=== PATIENT | male | born 1995 | race American Indian/Alaskan Native ===

== ENCOUNTER 2018-02-04 19:11 | Emergency (ER) | payer SELFPAY ==
[2018-02-04 20:02] VITALS: BP 140/83
[2018-02-04] MEDS ORDERED: MOTRIN PO ONE (20:03)
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
--- NOTE | 2018-02-04 22:15 | XRay Report ---
FINAL REPORT EXAM: XR HAND 2V RT HISTORY: right hand swelling and pain COMPARISON: None available. FINDINGS: Two views of right hand obtained. Bony structures are intact. Joint spaces are preserved. No acute fracture dislocation. IMPRESSION: No acute bony abnormality.
== END 2018-02-04 21:32 | disposition home or self-care (01) ==
LOC: ED 19:11
DX: S62.316A Displaced fracture of base of fifth metacarpal bone, right hand, initial encounter for closed fracture (principal); F17.200 Nicotine dependence, unspecified, uncomplicated; F12.90 Cannabis use, unspecified, uncomplicated; W22.01XA Walked into wall, initial encounter; Y93.89 Activity, other specified; Y92.89 Other specified places as the place of occurrence of the external cause; Y99.8 Other external cause status
CPT/HCPCS: 99283